=== PATIENT | female | born 2000 | race Caucasian/White ===

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

== ENCOUNTER 2024-05-04 17:41 | Emergency (ER) | payer MEDICAID ==
[~2024-05-04] VITALS: Ht 167.6 cm; Wt 57.8 kg
[2024-05-04 18:28] LABS: BASOPHILS # (AUTO) 0.1 X10'3 (0-0.2); EOSINOPHILS # (AUTO) 0.4 X10'3 (0-0.9); EOSINOPHILS % (AUTO) 4.8 % (0-6); HEMATOCRIT 34.6 % (35.0-45.0); HEMOGLOBIN 11.7 g/dl (12.0-16.0); LYMPHOCYTES # (AUTO) 2.4 X10'3 (1.1-4.8); MEAN CORPUSCULAR HEMOGLOBIN 30.1 PG (27.0-31.0); MEAN CORPUSCULAR HGB CONC 33.8 g/dL (33.0-36.5); MEAN CORPUSCULAR VOLUME 88.8 FL (78-98); MEAN PLATELET VOLUME 8.3 FL (7.4-10.4); MONOCYTES # (AUTO) 0.5 X10'3 (0-0.9); MONOCYTES % (AUTO) 6.1 % (2-12); NEUTROPHILS # (AUTO) 4.7 X10'3 (1.8-7.7); NEUTROPHILS % (AUTO) 58.1 % (42-75); PLATELET COUNT 261 X10'3 (140-440); RED CELL DISTRIBUTION WIDTH 13.9 % (11.5-14.5)
[2024-05-04 18:32] LABS: BILIRUBIN,URINE NEGATIVE (Neg); CLARITY,URINE CLEAR (Clear); COLOR,URINE YELLOW (Yellow); GLUCOSE, URINE NEGATIVE (Neg); KETONES,URINE TRACE mg/dl (Neg); LEUKOCYTE ESTERASE ,URINE NEGATIVE (Neg); NITRITES, URINE NEGATIVE (Neg); OCCULT BLOOD,URINE MODERATE (Neg); PROTEIN,URINE NEGATIVE (Neg)
[2024-05-04 18:35] LABS: UA COLLECTION TYPE CLN CATCH MIDSTREAM
[2024-05-04 18:40] LABS: PROTHROMBIN TIME 10.6 SECONDS (9.0-12.0)
[2024-05-04 18:40] LABS: BACTERIA,URINE FEW /HPF (Neg); MUCUS STRANDS NONE SEEN /LPF (Neg); SQUAMOUS EPITHELIAL CELL,UR MODERATE /LPF (FEW); TRANSITIONAL EPI CELLS,URINE FEW /HPF; WBC,URINE 0-4 /HPF (0-4)
[2024-05-04 18:53] LABS: ALANINE AMINOTRANSFERASE 20 U/L (12-78); ALBUMIN 3.5 G/DL (3.4-5.0); ALKALINE PHOSPHATASE 48 IU/L (46-116); ANION GAP 8 (8-16); ASPARTATE AMINO TRANSFERASE 19 U/L (10-37); BILIRUBIN,TOTAL 0.4 MG/DL (0.1-1.0); BLOOD UREA NITROGEN 17 MG/DL (7-18); BUN/CREATININE RATIO 23.6 (10.0-20.0); CALCIUM 8.8 MG/DL (8.5-10.1); CHLORIDE 107 MMOL/L (99-107); CREATININE 0.72 MG/DL (0.40-0.90); GLUCOSE 90 MG/DL (70-104); SODIUM 142 MMOL/L (135-145); TOTAL CARBON DIOXIDE 26.6 MMOL/L (24-32); TOTAL PROTEIN 6.9 G/DL (6.4-8.2); eCRCL 111 ML/MIN; eGFR > 90 ML/MIN
[2024-05-04 18:56] LABS: BETA HCG,QUANTITATIVE < 1.0 mIU/ml; POTASSIUM 4.3 MMOL/L (3.5-5.1)
[2024-05-04 19:13] VITALS: BP 108/62; PULSE 65; RESP 16; TEMP 98.4; O2SAT 98
== END 2024-05-04 19:15 | disposition home or self-care (01) ==
LOC: ER 17:42
DX: N92.0 Excessive and frequent menstruation with regular cycle (principal); D64.9 Anemia, unspecified; N94.19 Other specified dyspareunia; Z98.51 Tubal ligation status; Z79.899 Other long term (current) drug therapy
CPT/HCPCS: 36415; 80053; 81001; 84702; 85025; 85610; 99283

== ENCOUNTER 2024-11-23 01:52 | Emergency (ER) | payer MEDICAID ==
[~2024-11-23] VITALS: Ht 167.6 cm; Wt 74.6 kg
[2024-11-23] MEDS ORDERED: METR-159 PO (03:55)
--- NOTE | 2024-11-23 03:56 | Physician Documentation ---
History of Present Illness ~ Chief Complaint: STD Stated Complaint: STD EXPOSURE Time Seen by MD: 03:37 Primary Medical Doctor: [facility] Source: patient Mode of Arrival: POV Exam Limitations: no limitations HPI Chief Complaint: Possible STD Caveat: None Independent Historians: None History of Present Illness: Patient is a 24-year-old healthy woman who states that she was exposed to chlamydia one month ago. Her partner informed her that he was tested in was positive for chlamydia. Patient was tested for everything else including syphilis and was negative. Patient complains of some lower pelvic discomfort and cramping for approximately two weeks. She has also had an abnormal vaginal discharge. Patient denies any burning with urination. Patient denies any fever. Review of systems: All systems were reviewed and are negative except for what is indicated in the history of present illness. Past Medical History: None Past Surgical History: None Social History: Tobacco use, alcohol use Medications: Reviewed as documented Nursing Notes Allergies: Reviewed as documented in Nursing Notes Medication Reconciliation Allergies: Coded Allergies: No Known Allergies (Unverified , 05/04/24) Scheduled Pantoprazole Sodium (PROTONIX tablet), 1 TAB PO DAILY Past Medical History Past Medical History: Extremity Fracture Past Surgical History: no surgical history Alcohol Use: Rarely Drug Use: none Lives with: Family Lives In: Home Review of Systems All Other Systems at this time: Reviewed and Negative ROS Patient denies any other acute symptoms other than above. All other systems are negative Physical Exam Vital Signs: Temperature: 97.9, Source: Temporal, Heart Rate: 84, Respiratory Rate: 18, BP: 103/66, Pulse Oximetry: 98, Weight: 74.600 Oxygen Flow Rate: 0 Pulse Oximetry Reflects: adequate oxygenation Physical Exam General Appearance: No distress HEENT: Normal OP, moist oral mucosa, PERRL, EOMI Neck: supple, normal ROM, trachea midline Pulmonary: No respiratory distress, CTA, BS equal Cardiac: RRR, no murmur, rub or gallop, GI: nondistended, soft, nontender, normal bowel sounds, no guarding, no rebound Extremities: normal ROM, no swelling, non-tender Skin: intact, dry, warm, no rashes Neuro: AAOx3, speech is clear, no focal motor weakness Psych: normal affect, good eye contact, no apparent hallucination, normal speech Progress Results/Orders Results/Orders Orders - KIM GAUTAM MD/Gc Amp Ur (11/23/24 03:47) Ceftriaxone Im Kit W/Lidocaine (Rocephin (11/23/24 03:50) Zithromax (11/23/24 03:50) Vital Signs 11/23/24 02:00 Temp 97.9 Pulse 84 Resp 18 B/P (MAP) 103/66 Pulse Ox 98 O2 Flow Rate 0 Medical Decision Making Findings Differential diagnosis includes but is not limited to: SEXUALLY TRANSMITTED DISEASE, CHLAMYDIA, GONORRHEA, SYPHILIS, TRICHOMONAS, BACTERIAL VAGINITIS, PELVIC INFLAMMATORY DISEASE Laboratory data independent interpretation: Serology: GC PENDING Urinalysis: PENDING Emergency department course/medical decision-making: Patient is 24 healthy year old woman who presents with request for evaluation of STD. Patient states that she was exposed to her partner that has chlamydia. Patient is empirically treated for gonorrhea and chlamydia and Trichomonas. Patient is deferring pelvic exam. Patient is afebrile. Patient's lower abdominal exam is unremarkable. Patient is stable for discharge. Departure Time of Disposition: 03:52 Disposition: 01 HOME / SELF CARE / HOMELESS Impression: Primary Impression: Vaginal discharge Discharge Instructions: Sexually Transmitted Disease Additional Instructions: MAY OR MAY NOT HAVE A SEXUALLY TRANSMITTED DISEASE, CHLAMYDIA. IF YOUR TEST RESULTS ARE POSITIVE YOU WILL BE CALLED. HOWEVER YOU BEEN TREATED FOR POTENTIAL CHLAMYDIA, GONORRHEA AND TRICHOMONAS. RETURN TO THE EMERGENCY DEPARTMENT IF YOUR SYMPTOMS WORSEN. Prescriptions Metronidazole* (Flagyl*) 500 Mg Tablet 1 TAB PO Q12H for 7 Days, #14 TAB Prov: KIM GAUTAM MD 11/23/24 Education Educated: Patient Educated regarding: diagnosis, treatment Signature Scribe Signature: No scribe Attestation: No scribe KIM GAUTAM MD Nov 23, 2024 03:56
[2024-11-23] MEDS: CefTRIAXone 1000mg IM Kit (w/lidocaine diluent) IM ONE (04:01)
[2024-11-23] MEDS: azithromycin 250mg tablet PO ONE (04:02)
[2024-11-23 04:52] VITALS: BP 103/60; PULSE 67; RESP 16; TEMP 97.6; O2SAT 98
== END 2024-11-23 04:54 | disposition home or self-care (01) ==
LOC: ER 01:53
DX: N89.8 Other specified noninflammatory disorders of vagina (principal)
CPT/HCPCS: 36415; 87491; 87591; 96372; 99283; J0696

== ENCOUNTER 2025-02-18 20:40 | Emergency (ER) | payer MEDICAID ==
[~2025-02-18] VITALS: Ht 167.6 cm; Wt 77.4 kg
[2025-02-18 21:12] VITALS: BP 104/62; PULSE 68; RESP 17; TEMP 98.2; O2SAT 98
[2025-02-18] MEDS ORDERED: TRAM50TA2 PO (22:32)
--- NOTE | 2025-02-18 22:32 | Physician Documentation ---
History of Present Illness ~ Chief Complaint: Ear Pain Stated Complaint: R EAR PAIN Time Seen by MD: 22:18 Primary Medical Doctor: [facility] HPI Patient presents to the emergency room for evaluation of muffled sounds in her right ear along with associated anterior right ear pain. No prior instances. Endorses congestion. No fevers. She believes the muffled sound began before the pain. Pain is exacerbated with palpation just anterior to her right ear Medication Reconciliation Allergies: Coded Allergies: No Known Allergies (Unverified , 05/04/24) Scheduled Pantoprazole Sodium (PROTONIX tablet), 1 TAB PO DAILY Past Medical History Past Medical History: Extremity Fracture Past Surgical History: no surgical history Last Menstrual Period: Jan 23, 2025 Alcohol Use: Rarely Drug Use: none Lives with: Family Lives In: Home Review of Systems ROS All review of systems negative except as per HPI Physical Exam Vital Signs: Temperature: 98.2, Source: Oral, Heart Rate: 68, Respiratory Rate: 17, BP: 104/62, Pulse Oximetry: 98, Weight: 77.400 Physical Exam General: Patient is awake, alert, oriented x4 in no acute distress and well appearing.~ Head: Normocephalic and atraumatic. Eyes: Conjunctival normal. EOMI. PERRL. ENT: Mucous membranes moist. Tympanic membranes clear bilaterally with good cone of light reflex. Tenderness to palpation just anterior to patient's right ear. No skin changes. No tenderness to palpation to mastoid processes. Neck: Supple, trachea is midline. Chest: Clear to auscultation bilaterally without rales, rhonchi, or wheezes. T here is no accessory muscle use or retractions. Cardiac: RRR without murmurs, gallops, or rubs. Progress Results/Orders Results/Orders Vital Signs 02/18/25 21:12 Temp 98.2 Pulse 68 Resp 17 B/P (MAP) 104/62 Pulse Ox 98 Medical Decision Making Findings Patient presents to the emergency room for evaluation of right ear pain as per HPI. Differentials include but are not limited to otitis externa, otitis interna, mastoiditis, Eustachian tube dysfunction, TMJ pain, neuropathic pain. Physical exam is reassuring. No significant abnormality seen in patient's ear bilaterally and I do not believe she is suffering from an infection. Tenderness to palpation over the TMJ and she may be suffering from TMJ disorder. Possible Eustachian tube dysfunction given muffled hearing. Departure Disposition: HOME / SELF CARE / HOMELESS Impression: Primary Impression: Eustachian tube dysfunction Additional Impression: TMJ (temporomandibular joint syndrome) Condition: Stable Discharge Instructions: Eustachian Tube Dysfunction, Temporomandibular Joint Syndrome Additional Instructions: Combined ibuprofen and Tylenol for pain. Mouth guard may be of benefit. Inquired your primary care doctor regarding ENT referral and possible portfolio analyst Referrals: NO PRIMARY CARE PROVIDER (PCP) Prescriptions Tramadol HCl (Tramadol HCl) 50 Mg Tablet 1 TAB PO Q6H PRN PRN for pain, #10 TAB Prov: VASQUEZ MOSER MD 02/18/25 Education Educated: Patient Educated regarding: diagnosis, treatment, need for follow up Signature Scribe Signature: No scribe Attestation: The note accurately reflects work and decisions made by me.Vasquez Moser MD 02/18/25 22:33 VASQUEZ MOSER MD Feb 18, 2025 22:32
== END 2025-02-18 22:44 | disposition home or self-care (01) ==
LOC: ER 20:41
DX: H69.91 Unspecified Eustachian tube disorder, right ear (principal); M26.609 Unspecified temporomandibular joint disorder, unspecified side
CPT/HCPCS: 99283

== ENCOUNTER 2025-05-04 21:20 | Emergency (ER) | payer MEDICAID ==
[~2025-05-04] VITALS: Ht 167.6 cm; Wt 80.3 kg
[2025-05-04 21:23] VITALS: TEMP 98
--- NOTE | 2025-05-04 23:37 | Physician Documentation ---
History of Present Illness ~ General Chief Complaint: Multiple Medical Complaints Stated Complaint: SWOLLEN LUMPH NODE Time Seen by MD: 23:34 Primary Medical Doctor: [facility] Mode of Arrival: POV, Ambulatory History of Present Illness Initial Comments Patient presents to the emergency room with continued muffled sound in her right ear that has well as lymphadenopathy in her right neck that has well as bilateral hand burning. I saw patient is a proximally two months ago for her ear complaint. That has no infection at that time and that has thought this is secondary to Eustachian tube dysfunction. She would not follow up. Patient has not noticed over the past week she has developed swollen anterior right neck in his concerned. She denies any fevers or dental flares. Also having bilateral palm pain that has been going on since the same time. Family history of carpal tunnel Medication Reconciliation Allergies: Coded Allergies: No Known Allergies (Unverified , 05/04/24) Scheduled Pantoprazole Sodium (PROTONIX tablet), 1 TAB PO DAILY Past Medical History Past Medical History: Extremity Fracture Past Surgical History: no surgical history Last Menstrual Period: May 01, 2025 Smoking Status: Current every day smoker Alcohol Use: Rarely Drug Use: none Lives with: Family Lives In: Home Review of Systems ROS All review of systems negative except as per HPI Physical Exam Physical Exam Vital Signs: Temperature: 98.0, Heart Rate: 73, Respiratory Rate: 16, BP: 134/74, Pulse Oximetry: 100, Weight: 80.300 Oxygen Flow Rate: 0 Physical Exam General: Patient is awake, alert, oriented x4 in no acute distress Head: Normocephalic and atraumatic. Eyes: Conjunctival normal. EOMI. PERRL. ENT: Mucous membranes moist. No abscess. Tympanic membranes insufflated bilaterally Neck: Supple, trachea is midline. Noted right-sided submandibular lymphadenopathy Chest: Clear to auscultation bilaterally without rales, rhonchi, or wheezes. There is no accessory muscle use or retractions. Cardiac: RRR without murmurs, gallops, or rubs. Abd: Soft, nondistended, nontender, with normoactive bowel sounds. No guarding, rebound, or rigidity. Extremities: Normal strength. Normal range of motion. Positive Phalen's and positive Tinel's to bilateral hands Progress Results/Orders Results/Orders Orders - VASQUEZ MOSER MD Ondansetron Disint. Tablet (Zofran Odt T (05/04/25 23:45) Amox Tr/Potassium Clavulanate (Augmentin (05/04/25 23:45) Vital Signs 05/04/25 21:23 Temp 98.0 Pulse 73 Resp 16 B/P (MAP) 134/74 Pulse Ox 100 O2 Flow Rate 0 Medical Decision Making Additional information obtaine: old records Findings Patient presents to the emergency room for evaluation of muffled ear sound, right-sided neck mass as well as bilateral hand pain. Differentials include but are not limited to infectious process, carpal tunnel, otitis media, dental infection, brachial cleft cyst. Patient's physical exam is consistent with carpal tunnel in nighttime splinting that has well as course of anti- inflammatories discussed. Unknown cause for patient's right-sided neck m ass/lymphadenopathy. We will give a trial of antibiotics and hopefully it resolves. That has tympanic membranes are bilaterally insufflated. They do not appear grossly infected that we will cover for infection with antibiotics. The need to follow up with her doctor discussed. Differential Diagnosis k Departure Disposition: HOME / SELF CARE / HOMELESS Impression: Primary Impression: Carpal tunnel syndrome Additional Impression: Neck swelling Condition: Stable Additional Instructions: Nighttime splinting for your hands as discussed as well as course of anti- inflammatories. Follow up with your doctor Referrals: NO PRIMARY CARE PROVIDER (PCP) Prescriptions Ondansetron 8mg ODT (Ondansetron Odt) 8 Mg Tab.rapdis 1 TAB PO Q6H for nausea/vomiting for 3 Days, #12 TAB 0 Refills Prov: VASQUEZ MOSER MD 05/04/25 Amox Tr/Potassium Clavulanate (Augmentin 500-125 Tablet) 1 Each Tablet 1 TAB PO Q12H for 10 Days, #20 TAB Prov: VASQUEZ MOSER MD 05/04/25 Signature Scribe Signature: No scribe Attestation: The note accurately reflects work and decisions made by me.Vasquez Moser MD 05/04/25 23:49 VASQUEZ MOSER MD May 04, 2025 23:37
[2025-05-04] MEDS ORDERED: ONDA-245 PO (23:49)
[2025-05-04] MEDS ORDERED: AMOX-115 PO (23:49)
[2025-05-05] MEDS: ondansetron 4mg rapidly disintigrating tab PO ONE (00:56)
[2025-05-05] MEDS: amox tr/potassium clavulanate 875/125mg TAB PO ONE (00:56)
[2025-05-05 00:57] VITALS: BP 136/75; PULSE 80; RESP 16; O2SAT 97
== END 2025-05-05 01:07 | disposition home or self-care (01) ==
LOC: ER 21:22
DX: G56.03 Carpal tunnel syndrome, bilateral upper limbs (principal); R22.1 Localized swelling, mass and lump, neck; F17.200 Nicotine dependence, unspecified, uncomplicated; Z79.899 Other long term (current) drug therapy
CPT/HCPCS: 99283

== ENCOUNTER 2025-05-09 23:34 | Emergency (ER) | payer MEDICAID ==
[~2025-05-09] VITALS: Ht 167.6 cm; Wt 80.5 kg
[~2025-05-09 23:34] MED LIST changes: +AMOX-115 PO; +ONDA-245 PO
[2025-05-09 23:50] VITALS: BP 102/63; PULSE 80; O2SAT 97
--- NOTE | 2025-05-10 00:05 | Physician Documentation ---
History of Present Illness ~ General Chief Complaint: Tooth Problem Stated Complaint: TOOTH PAIN Time Seen by MD: 00:52 Primary Medical Doctor: [facility] Source: patient, family, RN/MD, RN notes reviewed Mode of Arrival: POV Exam Limitations: no limitations History of Present Illness Initial Comments Patient has been on antibiotics for ear pain and dental mouth pain with swelling to the right side of her neck. Patient states they antibiotics have not worked and she continues to have swelling to the lymph nodes on the left side of her neck Medication Reconciliation Allergies: Coded Allergies: amoxicillin (Verified Allergy, Unknown, HIVES, 05/09/25) clavulanic acid (Verified Allergy, Unknown, HIVES, 05/09/25) Scheduled Amox Tr/Potassium Clavulanate (Augmentin 500-125 Tablet), 1 TAB PO Q12H Clindamycin HCL* (Clindamycin HCL*), 1 CAP PO Q8H Ondansetron 8mg ODT (Ondansetron Odt), 1 TAB PO Q6H Pantoprazole Sodium (PROTONIX tablet), 1 TAB PO DAILY Past Medical History Past Medical History: Extremity Fracture Past Surgical History: no surgical history Alcohol Use: Rarely Drug Use: none Lives with: Family Lives In: Home Review of Systems All Other Systems at this time: Reviewed and Negative Physical Exam Physical Exam Vital Signs: RN Vital Signs have been reviewed: Yes, Temperature: 98.9, Source: Oral, Heart Rate: 80, Respiratory Rate: 18, BP: 102/63, Pulse Oximetry: 97, Weight: 80.450 Physical Exam General: The patient is well developed, well nourished, nontoxic appearing and is in mild acute distress. Skin: [place], warm and dry with no rashes. HEENT: Head was normocephalic and atraumatic. Eyes - pupils equal, round, reactive to light and accommodation. Extraocular movements were intact. Conjunctivae were nonicteric. Ears - bilateral tympanic membranes were normal. The mouth and oropharynx were clear with moist mucous membranes. There were no pharyngeal exudates or erythema. Dental on there is inflamed tissue over the molar. Tenderness to palpation the right lower molar, impacted wisdom tooth Neck: Supple and nontender. There was no jugular venous distention, significantly enlarged lymphadenopathy on the right anterior chain no, thyromegaly Chest: Clear to auscultation bilaterally without wheezes, rales or rhonchi. No accessory muscle use. No dullness to percussion. Heart: Rate regular and rhythmic. S1, S2. No murmurs. Palpation of the chest wall was normal. No rubs or thrills. Abdomen: Soft, nontender and nondistended. Positive bowel sounds. No guarding or rebound. No hepatosplenomegaly or palpable masses. Extremities: No cyanosis, clubbing or edema. The patient moves all extremities. Pulses were equal and symmetric. Neurologic: Motor sensory grossly intact Psychologic: The patient was oriented to person, place and time. The patient demonstrated appropriate judgement and insight. Procedures Joint Injection: Site: other (Left inferior alveolar nerve block) Injected With: lidocaine, other (Lidocaine with epi) Amount (mls): 5 Patient Relief: complete Tolerated Procedure Well?: yes, no complications Progress Results/Orders Reviewed/noted all lab results: Yes Results/Orders Orders - ROQUE CRABTREE MD Clindamycin 300mg/D5w 50ml (Clindamycin (05/10/25 02:00) Diphenhydramine Inj (Benadryl Inj.) (05/10/25 02:10) Completed Orders - ROQUE CRABTREE MD Morphine 2mg/Ml Inj. (Morphine Inj.) (05/10/25 00:55) Ondansetron Inj. (Zofran 4mg/2ml Vial) (05/10/25 00:55) Lidocaine 1% W/Epi 1:100,000 (Xylocaine (05/10/25 01:45) Medications Received in ER Medications (Trade) Dose Ordered Sig/Leeann Route PRN Reason Start Time Stop Time Status Last Admin Dose Admin (morphine inj.) 2 mg ONCE ONCE IV 05/10/25 00:55 05/10/25 00:56 DC 05/10/25 00:58 2 MG (Zofran 4mg/2ml vial) 4 mg ONCE ONCE IV 05/10/25 00:55 05/10/25 00:56 DC 05/10/25 00:59 4 MG Vital Signs 05/09/25 05/10/25 23:50 00:58 Temp 98.9 Pulse 80 Resp 18 18 B/P (MAP) 102/63 Pulse Ox 97 Laboratory Tests Test 05/10/25 00:49 05/10/25 00:50 White Blood Count 8.8 Red Blood Count 3.92 L Hemoglobin 11.4 L Hematocrit 33.4 L Mean Corpuscular Volume 85.2 Mean Corpuscular Hemoglobin 29.2 Mean Corpuscular Hemoglobin Concent 34.2 Red Cell Distribution Width 15.3 H Platelet Count 350 Mean Platelet Volume 8.0 Neutrophils (%) (Auto) 67.0 Lymphocytes (%) (Auto) 15.7 L Monocytes (%) (Auto) 7.3 Eosinophils (%) (Auto) 9.3 H Basophils (%) (Auto) 0.7 Neutrophils # (Auto) 5.9 Lymphocytes # (Auto) 1.4 Monocytes # (Auto) 0.6 Eosinophils # (Auto) 0.8 Basophils # (Auto) 0.1 CBC Comment Sodium Level 138 Potassium Level 3.9 Chloride Level 105 Carbon Dioxide Level 25.9 Anion Gap 7 L Blood Urea Nitrogen 11 Creatinine 0.71 Estimated GFR/1.73 m2 > 90 BUN/Creatinine Ratio 15.5 Glucose Level 95 Calcium Level 7.8 L Albumin 3.2 L Chemistry Comments Urine HCG, Qualitative Negative Re-Evaluation Re-Evaluation : Re-Evaluation: Improved Progress Patient was seen and examined. Patient is given reassurance. The patient was screened in triage and there was concern for possible abscess. CT scan was obtained there was no signs of necrosis or abscess. Laboratory work was also obtained later showed a WBC of 8.8 hemoglobin 11 hematocrit 33 with platelets 350. No significant leukocytosis which is reassuring. Urinalysis hCG was negative chemistry within normal limits. Patient received a infra-alveolar nerve block and had good relief of her pain and symptoms but still continues to have ear pain. No mastoiditis lymphoma was also considered as a possible lady. As far as her treatment patient received morphine Zofran and then lidocaine with epi for the nerve block IV clinda 300 mg both oral and IV and then was discharged home. EKG/XRAY/CT/US/VASC/MRI CT : With Contrast?: Yes Impression EXAM: CT CT NECK SOFT TISSUES W/ IV CONTRAST INDICATION: Failed home ABX left-sided lymph nodes Exam Date: 05/10/2025 01:05 AM COMPARISON: None TECHNIQUE: CT of the neck with intravenous contrast. RADIATION DOSE: CTDIvol: 14.23 mGy, DLP: 373.2 mGy*cm CONTRAST: Type of contrast: Omnipaque 300 Contrast injected: 100 ml FINDINGS: Enlarged right level 2a lymph node measuring 2.2 cm. Multiple additional borderline enlarged lymph nodes along both cervical chains. No central necrosis or cavitation. No focal collection. The fat planes of the neck appear intact. The airway and larynx are unremarkable. The parotid, submandibular and thyroid glands are unremarkable. The vascular structures of the neck appear patent. The visualized lung apices are clear. The limited visualized portions of the brain are unremarkable. The osseous structures are unremarkable. Diffuse opacification of the right maxillary sinus. Mucous retention cysts within the left maxillary sinus. Mucosal thickening throughout the paranasal sinuses. IMPRESSION: Multiple enlarged lymph nodes along both cervical chains, largest within the right level 2A neck. No central necrosis or abscess. No peritonsillar abscess or other acute abnormality. Medical Decision Making Additional information obtaine: old records Findings CT scan was negative for any abscess Differential Diagnosis Lymphoma, necrotic abscess of the lymph node. Lymphadenopathy, ear pain, dental pain, mastoiditis, Departure Disposition: HOME / SELF CARE / HOMELESS Impression: Primary Impression: Impacted third molar tooth Additional Impression: Inferior alveolar nerve block Additional Impression Text You may want to see a dentist or oral maxillary facial surgeon Condition: Stable Discharge Instructions: Dental Caries, Adult Referrals: NO PRIMARY CARE PROVIDER (PCP) Prescriptions Clindamycin HCL* (Clindamycin HCL*) 300 Mg Capsule 1 CAP PO Q8H for 10 Days, #30 CAP 0 Refills Prov: ROQUE CRABTREE MD 05/10/25 Education Educated: Patient Educated regarding: diagnosis, need for follow up, other Signature Scribe Signature: . Attestation: The note accurately reflects work and decisions made by me.Roque Crabtree MD 05/10/25 02:02 SARITA ORNELAS NP May 10, 2025 00:05 ROQUE CRABTREE MD May 10, 2025 02:02
[2025-05-10] MEDS ORDERED: iohexol 300mg/ml 100ml inj. ONE (00:44)
[2025-05-10 00:58] VITALS: RESP 18
[2025-05-10] MEDS: ondansetron/PF 4mg/2ml inj IV ONE (00:59)
[2025-05-10 01:03] LABS: MEAN PLATELET VOLUME 8.0 FL (7.4-10.4); RED CELL DISTRIBUTION WIDTH 15.3 % (11.5-14.5)
[2025-05-10 01:03] LABS: URINE HCG NEGATIVE (NEG)
[2025-05-10 01:08] LABS: CREATININE 0.71 MG/DL (0.40-0.90); TOTAL CARBON DIOXIDE 25.9 MMOL/L (24-32); eCRCL 114 ML/MIN; eGFR > 90 ML/MIN
--- NOTE | 2025-05-10 01:57 | RADIOLOGY REPORT ---
EXAM: CT CT NECK SOFT TISSUES W/ IV CONTRAST INDICATION: Failed home ABX left-sided lymph nodes Exam Date: 05/10/2025 01:05 AM COMPARISON: None TECHNIQUE: CT of the neck with intravenous contrast. RADIATION DOSE: CTDIvol: 14.23 mGy, DLP: 373.2 mGy*cm CONTRAST: Type of contrast: Omnipaque 300 Contrast injected: 100 ml FINDINGS: Enlarged right level 2a lymph node measuring 2.2 cm. Multiple additional borderline enlarged lymph nodes along both cervical chains. No central necrosis or cavitation. No focal collection. The fat planes of the neck appear intact. The airway and larynx are unremarkable. The parotid, submandibular and thyroid glands are unremarkable. The vascular structures of the neck appear patent. The visualized lung apices are clear. The limited visualized portions of the brain are unremarkable. The osseous structures are unremarkable. Diffuse opacification of the right maxillary sinus. Mucous retention cysts within the left maxillary sinus. Mucosal thickening throughout the paranasal sinuses. IMPRESSION: Multiple enlarged lymph nodes along both cervical chains, largest within the right level 2A neck. No central necrosis or abscess. No peritonsillar abscess or other acute abnormality.
[2025-05-10] MEDS ORDERED: CLIN-224 PO (02:09)
[2025-05-10] MEDS: clindamycin 300mg/D5W 50mL 50 ML IV SCH (02:12)
[2025-05-10] MEDS: LIDOcaine 1% W/epiNEPHrine 1:100,000 20ml vial IJ ONE (02:12)
[2025-05-10 02:27] VITALS: TEMP 98.9
== END 2025-05-10 02:33 | disposition home or self-care (01) ==
LOC: ER 23:34
DX: K01.1 Impacted teeth (principal); Z88.1 Allergy status to other antibiotic agents; Z79.899 Other long term (current) drug therapy
CPT/HCPCS: 36415; 64400; 70491; 80048; 81025; 85025; 96365; 96375; 99285; J1200; J2270; J2405; J3490; Q9967